=== PATIENT | female | born 2005 | race Asian ===

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

== ENCOUNTER 2024-12-25 17:35 | Outpatient (CLI) | payer OTHER, SELFPAY | END 2024-12-25 17:36 | disposition home or self-care (01) | LOC: AMB 12-29 06:34 | PROVIDERS: PCP Family Medicine; Visit Provider Family Medicine | DX: S99.911A Unspecified injury of right ankle, initial encounter (principal); W10.9XXA Fall (on) (from) unspecified stairs and steps, initial encounter; Y92.039 Unspecified place in apartment as the place of occurrence of the external cause | CPT/HCPCS: A0425; A0427 ==

== ENCOUNTER 2024-12-25 18:01 | Emergency (ER) | payer OTHER, SELFPAY ==
--- OUTSIDE RECORDS SUMMARY | 2024-12-25 18:03 | XMS_ITS | Referral Summary ---
Author Organization [facility] r Address [address] [place] [address] Phone Care Team Providers Care Socially Responsible Investment Adviser Name Role Phone Horacio Santo MD Primary Care Provider Unav ailable Allergies No known active allergies Medications sertraline (ZOLOFT) 50 mg tablet Take 50 mg by mouth daily. Active norethindrone-et hinyl estradiol (04/19) 1 mg-20 mcg (21)/75 mg (7) per tablet Take 1 tablet by mouth daily. 11/28/2022 Active Social History Tobacco Use Types Packs/Day Years Used Date Smoking Tobacco: Never Tobacco Cessation:Counseling Given: Not Answered Comments Unknown Sex and Gender Information Value Date Recorded Sex Assigned at Female 10/30/2022 2:16 PM EDT Legal Sex Female 2:12 PM EDT Gender Identity Female 10/30/2022 2:16 PM EDT Sexual Orientation Not on file Last Filed Vital Signs Vital Sign Reading Time Taken Comments Blood Pressure 109/67 10/24/2023 11:03 AM EDT Pulse 69 10/24/2023 11:03 AM EDT Temperature - - Respiratory Rate - - Oxygen Saturation - - Inhaled Oxygen Concentration - - Weight - - Height - - Body Mass Index - - Plan of Treatment Not on file Care Teams Socially Responsible Investment Adviser Relationship Specialty Start Date End Date Horacio Santo MD PCP - General 03/07/23
--- OUTSIDE RECORDS SUMMARY | 2024-12-25 18:03 | XMS_ITS | Clinical Summary ---
Author Organization [facility] Address [address] [place] [address] Phone Care Team Providers Care Raw Cheese Worker Name Role Phone Horacio Santo MD Primary [...] Mass Index - - Plan of Treatment Health Maintenance Due Date Last Done Comments Dental Oral Exam 2004 Dental Prophylaxis 2004 Dental X-Ray: Bitewings 2004 Dental X-Ray: Full Mouth 2004 HIV Lifetime Screening 2004 Hepatitis B Lifetime Screening 2004 Hepatitis C Antibody Lifetime Screening 2004 Periodontal Maintenance 2004 THRIVE SCREENING 2004 Oral Health Screen 2004 Fluoride Varnish 2004 MMR VACCINES (1 of 1 - Standard series) 02/27/2005 HEIP Disability Screen 02/27/2009 BEHAVIORAL HEALTH SCREEN 2016 Psych Substance Use Screen 2016 VARICELLA VACCINES (1 of 2 - 13+ 2-dose series) 02/27/2017 CHLAMYDIA SCREENING 02/27/2019 HPV VACCINES (1 - 3-dose series) 02/27/2019 Relationship Safety Screening 02/27/2019 MENINGOCOCCAL B (1 of 2 - Standard) 2020 DTAP/TDAP VACCINE (1 - Tdap) 02/27/2023 HEPATITIS B VACCINES (1 of 3 - 19+ 3-dose series) 02/27/2023 COVID-19 Vaccine (4 - 2024- season) 2024 04/12/2021, 07/23/2020, 07/02/2020 INFLUENZA VACCINE (#1) 2024 0, 02/13/2011, 01/30/2010, Additional history exists Zoster Vaccine (1 of 2) 02/27/2054 HEPATITIS A VACCINES Aged Out No long er eligible based on patient's age to complete this topic HIB VACCINES Aged Out No longer eligi ble based on patient's age to complete this topic IPV VACCINES Aged Out No longer eligi ble based on patient's age to complete this topic MENINGOCOCCAL ACWY Aged Out No longer eligible based on patient's age to complete this topic Pneumonia Vaccine 0-49 Years Aged Out No longer eligible based on patient's age to complete this topic ROTAVIRUS VACCINES Aged Out No longer eligible based on patient's age to complete this topic Care Teams Raw Cheese Worker Relationship Specialty Start Date End Date Horacio Santo MD PCP - General 03/07/23
--- OUTSIDE RECORDS SUMMARY | 2024-12-25 18:03 | XMS_ITS | Encounter Summary ---
Author Organization [facility] Address [address] [place] [address] [address] Care Team Providers Care Dietician Name Role Phone Horacio Santo Md Primary Care Provider Horacio Smith Md Unavailable Unavailable Katharine Figueroa Np Primary Care Provider [phone] Encounter Details Date Type Department Care Team (Late st Contact Info) Description 09/07/2019 [place] [phone] Latia Carranza MA Social History Tobacco Use Types Packs/Day Years Used Date Smoking Tobacco: Never Smokeless Tobacco: Never Comments Unknown Sex and Gender Information Value Date Recorded Sex Assigned at Female 09/23/2022 1:59 PM EDT Legal Sex Female 9:19 PM EDT Gender Identity Not on file Sexual Orientation Not on file COVID-19 Exposure Response Date Recorded In the last month, have you been in contact with someone who was confirmed or suspected to have Coronavirus / COVID-19? No / Unsure 09/01/2019 4:46 PM EDT documented as of this encounter Plan of Treatment Not on file documented as of this encounter Visit Diagnoses Not on filedocumented in this encounter Care Teams Dietician Relationship Specialty Start Date End Date Horacio Santo MD PCP - General Pediatrics 08/25/14 09/22/22 Horacio Santo MD PCP - Payer 11/15/15 Katharine Figueroa NP [address] [place], [place] [address] [address] PCP - General Pediatrics 09/23/22 documented as of this encounter
--- OUTSIDE RECORDS SUMMARY | 2024-12-25 18:03 | XMS_ITS | Encounter Summary ---
Author Organization [facility] r Address [address] [place] [address] Phone Care Team Providers Care Sales Representative Graphic Art Name Role Phone Horacio Santo MD Primary Care Provider Unav ailable Encounter Details Date Type Department Care Team (Late st Contact Info) Description 04/08/2024 Telephone Oral Surgery [address] [phone] Rashi Keyes, DMD [address] [place] [id number] Social History Tobacco Use Types Packs/Day Years Used Date Smoking Tobacco: Never Comments Unknown Sex and Gender Information Value Date Recorded Sex Assigned at Female 10/30/2022 2:16 PM EDT Legal Sex Female 2:12 PM EDT Gender Identity Female 10/30/2022 2:16 PM EDT Sexual Orientation Not on file documented as of this encounter Miscellaneous Notes * Telephone Encounter - Shabana Jefferson - 04/08/2024 9:21 AM EST S/W the pt's mom who stated they no longer want to proceed with the Lisa surgery as of now. documented in this encounter Plan of Treatment Not on file documented as of this encounter Visit Diagnoses Not on filedocumented in this encounter Care Teams Sales Representative Graphic Art Relationship Specialty Start Date End Date Horacio Santo MD PCP - General 12/8/23 documented as of this encounter
--- OUTSIDE RECORDS SUMMARY | 2024-12-25 18:03 | XMS_ITS | Clinical Summary ---
Author Organization [facility] Address [address] [place] [address] [address] Care Team Providers Care Farm Equipment Service Technician Name Role Phone Horacio Santo Md Unavailable Unavailable Katharine Figueroa Np Primary Care Provider [phone] Allergies No known active allergies Medications norethindrone-e thinyl estradiol (04/19) 1 mg-20 mcg (21)/75 mg (7) tabletIndicatio ns:Dysmenorrhea Take 1 tablet by mouth daily 84 tablet 4 5 Active norethindrone-e thinyl estradiol (04/19) 1 mg-20 mcg (21)/75 mg (7) tabletIndicatio ns:Dysmenorrhea Take 1 tablet by mouth daily 84 tablet 4 4 12/09/19 25 Discontinued Active Problems Problem Noted Date Diagnosed Date Vegetarian diet 06/21/2024 History of anxiety 06/17/2023 Overview (06/17/2023): Stable on 50 mg sertraline Followed by outside psychiatry through [facility] and trying to establish therapy as of May 2023 (had previously been in therapy and trying to get back in with old therapist). Overall, however, she is feeling much better than she has in the past Refractive error 04/24/2022 Resolved Problems Problem Noted Date Diagnosed Date Resolved Date Screening for mental disease /developmental disorder 09/16/2012 11/17/2014 Overview (10/13/2013): 09/10: PSC score: 9 10/11: PSC score: 23 - suggested considering BH Attention and concentration deficit 05/22/2011 11/17/2014 Overview (10/13/2013): 05/12 pt is very smart. She is supplemented with extra classes. Her [employer] math class teacher told mom she is very inattentive. Does not pay attention and then does not know the answers. When mom works with her at home, she gets all the problems right. Mom not sure what the reg high school french teacher thinks, but she knows she gets bored in schol. Also talks a lot. And unclear what her social skills are as she would rather read a book than many other play activities. However, does have friends. 09/10: mom finds can get irritable at home - ?teenager behavior - can be forgetful - but otherwise very bright 10/11: doing extra math class - teacher said needs to be called upon to get her attention - but otherwise still doing well Vomiting 05/22/2011 11/17/2014 Overview (09/16/2012): 05/12 mom associates this with forcing her to eat, but will have her keep 3 week food and sx diary. Her weight is not as good as before- decreased BMI Chest pain/?heartburn 05/22/20112013 Overview (10/13/2013): 05/12 going to school nurse with heartburn type sx. No treatment. ?if connected to the vomiting. 09/10: no calls from school nurse this year 10/11: no longer an issue - will resolve Motion sickness 05/22/2011 11/17/2014 Overview (10/13/2013): 05/12 just started. Explained to mom and gave avs handout. Sit looking straight ahead. No migraines in pt or fam. 09/10: noted that happens when reads in car - fine when not reading 10/11: better when doesn't read in car, still an issue on airplane Poor eating habits 05/22/2011 5 Overview (10/13/2013): 05/12 does not drink much. No water. 2 glasses of milk. No breakfast at times. No lunch at school. Small dinner takes 2 hours. Poor eating habit at dinner-was allowed to read so took her time. Mom has forced foods into her. Pt will respond by vomiting and mom thinks may be forced vomiting so she can get away from the talble to read or play. She needs to see nutrition to work out something for her foods. Should not have secondary gain. Try making urine more dilute by showing her paint chips and telling her the urine needs to be edi coordinator yellow like a certain paint color. 09/10: still doesn't drink much, no water, whole milk bid, mom still feels needs to feed her - otherwise takes too long and has other things to do - given info for nutrition again 10/11: still doesn't eat lunch - mom says is too social, will make eat lunch at 3PM but then may either get irritable and need to get her something to eat or not want to eat dinner - mom says she has to entertain and feed her, otherwise can take 2 hrs. To eat - advised still seems like behavioral problem - strongly enc. Not to cont. Same pattern - enc. To consider BH Vitamin D deficiency 11/08/2009 015 Overview (05/22/2011): 11/07 09/06 level 27. On mvt with vit d linwood past 1.5 years Asthma, cough variant 09/08/20062009 Overview (11/08/2009): Call to home to discuss Asthma, do not speak Samoan unable to talk with them. Sglennie 11/07 she wheezed after she had bronchiolitis. Not since Anemia, iron deficiency 04/23/200610/30 Overview (11/08/2009): 08/29. Neg hgb elec and ferritin 14 with hgb 11.9 Immunizations Immunization Administration Dates Next Due COVID-19 (PFIZER) Vaccine, 1 2YRS+, 30mcg/0.3mL 03/08/2024 COVID-19 (PFIZER) Vaccine, 30mcg/0.3mL, 12YRS+, Diluent Reconstituted, IM 04/12/2021,07/23/2020,07/02/2020 DTaP Vaccine 08/29/2008, 6,2004,04/30 DTaP-Hep B-IPV (Pediarix) 2004 HFlu B Conj (Unspecified Formulation) ,2004,2004,04/30 HPV9 Vaccine (Gardasil9) 08/28/2018,12/04/2016 Hep A Vaccine Pedi/Adol-2 Dose Sched 08/30/2005, 03/07/2005 Hep B Vaccine (Unspecified Formulation) 2004,2004 Influenza H1N1 Vaccine Intra nasal - [facility] 02/19/2009 Influenza Vaccine (Unspecifi ed Formulation) 02/09/2009,02/02/2008,02/12/2007,04/23,02/04/2005,01/03/2005 Influenza Vaccine >= 36 Mos - Imm Clinic 02/13/2011 Influenza Vaccine Intranasal - Imm Clinic 01/30/2010 Influenza Vaccine, 6MOS+, Ce ll Cult, Single Dose Syringe, 0.5 mL (FLUCELVAX) 12/08/2023 Influenza Vaccine, 6MOS+, Si ngle Dose, 0.5 mL (Flulaval/Fluzone) 12/31/2019 MMR Vaccine 02/02/2008,03/07/2005 Meningococcal ACWY (Menactra ) Conjugate Vaccine 04/13/2021,11/20/2015 Meningococcal Group B (Bexse ro) Conjugate Vaccine 06/17/2023,05/16/2022 Pneumococ/Pedi-Conjugate (PCV7) 05/30/19 06,2004,2004,04/30 Polio Vaccine (Inactivated) 08/29/2008, 5,2004 TB Test 05/29/2005 TdaP 11/20/2015 Typhoid Vaccine IM (ViCPS) 09/10/2017,02/02/2008 Varicella Vaccine 08/29/2008,03/07/2005 Family History Medical History Relation Comments Hyperlipidemia Paternal Grandfather Hypertension Paternal Grandmother Relation Status Comments Father Alive 30 Mother Alive 30 in 2003 Paternal Grandfather Paternal Grandmother Social History Tobacco Use Types Packs/Day Years Used Date Smoking Tobacco: Never Smokeless Tobacco: Never Hunger Vital Sign Answer Date Recorded Within the past 12 months, y ou worried that your food would run out before you got the money to buy more. Never true 06/22/19 25 Within the past 12 months, t he food you bought just didn't last and you didn't have money to get more. Never true 06/21/2024 PRAPARE - Transportation Answer Date Re corded In the past 12 months, has l ack of transportation kept you from medical appointments or from getting medications? No 05/30 In the past 12 months, has l ack of transportation kept you from meetings, work, or from getting things needed for daily living? No 06/21/2024 Depression Answer Date Recorded Last PHQ-2 0 06/21/2024 Last PHQ-9 0 06/21/2024 Suicidal Ideation/Self Harm Risk 0 - not at all 06/21/2024 Housing Stability Answer Date Recorded What is your housing situation today? Has doreen pickard 06/21/2024 Are you worried about losing your housing? No 06/21/[address] you li ve. Do you have problem with any of the following? (Choose all that apply) None of the Above Request Assistance Answer Date Recorded Would you like to discuss an y of the needs you identified in this survey with a member of your care team? Not applicable 06/21/2024 Urgent Assistance Needed Not on file 025 Social Isolation Answer Date Recorded How often do you feel lonely or isolated from th ose around you? Rarely 06/21/2024 Family Needs Answer Date Recorded In the past year, have you o r any family members that you live with been unable to get resources (utilities such as power, water, or phone service; clothing; childcare; medicine or other healthcare; employment; etc) when they were really needed? No needs 06/21/2024 Other Needs Not on file 06/21/2024 Safety Answer Date Recorded Do you feel physically and e motionally safe where you currently live? Yes 06/21/2024 Self-Management Confidence Answer Date Recorded How confident are you that y ou can control and manage most of your health problems? Please provide numerical response between 0 -10. 0 = Not at all confident, 10= Completely confident. 8 06/21/2024 Comments Unknown Sex and Gender Information Value Date Recorded Sex Assigned at Female 09/23/2022 1:59 PM EDT Legal Sex Female 9:19 PM EDT Gender Identity Not on file Sexual Orientation Not on file History Length Weight Head Circum Date/Time Gestation Age D/C Weight APGARs Delivery Method Feeding 20 (50.8 cm) 7 lb 10 oz (3.459 kg) 13.19 (33.5 cm) 2004 38.6 wks 7 lb 2 oz 1min: 8 5mi n: 9 Breast Fed VAG DELIVERY Obstetrics History Last Filed Vital Signs Vital Sign Reading Time Taken Comments Blood Pressure 108/60 06/21/2024 1:03 PM EDT Pulse 80 06/21/2024 1:03 PM EDT Temperature 36.3 C (97.3 F) 08/29/2021 1:56 PM EDT Respiratory Rate - - Oxygen Saturation - - Inhaled Oxygen Concentration - - Weight 71.2 kg (157 lb) 06/21/2024 1:03 PM EDT Height 161.9 cm (5' 3.74) 06/21/2024 1:03 PM ED T Body Mass Index 27.17 06/21/2024 1:03 PM EDT Plan of Treatment Health Maintenance Due Date Last Done Comments HEPATITIS A VACCINE (2 of 2 - 2-dose series) 03/01/2006 08/30/2005, 03/07/2005 * GLUCOSE OR A1C SCREENING - Q3YR 02/27/2022 HEP B INITIAL SCREENING 02/27/2022 HEP C SCREENING 02/27/2022 HIV SCREENING 02/27/2022 LIPID SCREENING 2024 FLU SEASONAL (#1) 11/29/2024 12/08/2023, 12/31/2019, 02/13/2011, Additional history exists CHLAMYDIA SCREENING FEMALE 16-24 06/21/2025 06/21/2024, 06/17/2023, 05/16/2022, Additional history exists PERIODIC HEALTH REVIEW 06/21/2025 06/21/2024 DTAP/TDAP/TD VACCINE (7 - Td or Tdap) 11/19/2025 11/20/2015, 08/29/2008, 05/29/2005, Additional history exists HEPATITIS B VACCINE Completed 2004, 2004, 2004 HAEMOPHILUS INFLUENZA VACCINE Completed 05/29/2005, 2004, 2004, Additional history exists PNEUMOCOCCAL VACCINE(S) Aged Out 05/30/19, 2004, 2004, Additional history exists No longer eligible based on patient's age to complete this topic RUBELLA Completed 02/02/2008, 03/07/2005 POLIO VACCINE Completed 08/29/2008, 08/2004, 2004, Additional history exists HPV VACCINE Completed 08/28/2018, 12/04/2016 MENINGOCOCCAL VACCINE (ACWY) Completed 04/13/2021, 11/20/2015 MENINGOCOCCAL VACCINE (B) Completed 06/17/2023, COVID-19 Vaccine Completed 03/08/2024, , 07/23/2020, Additional history exists RSV Vaccine Infant//toddler Aged Out No longer eligible based on patient's age to complete this topic Procedures Procedure Name Priority Date/Time Associated Diagnosis Comments CHLAMYDIA URINE DNA Routine 06/21/2024 4 :44 PM EDT Encounter for routine adult health examination without abnormal findings from Last 3 Months or Most Recently Relevant to Health Maintenance Results * CHLAMYDIA URINE DNA (06/21/2024 4:44 PM EDT) CHLAMYDIA PCR Negative Negative 06/22/2024 2:54 AM EDT [facility] DEPARTMENT OF PATHOLOGY AND LAB MEDICINE Comment: Test performed using Aptima Combo2 PCR assay. SOURCE URINE 06/22/2024 2:54 AM EDT [facility] DEPARTMENT OF PATHOLOGY AND LAB MEDICINE Urine (URINE) Urine / Unknown 06/21/2024 4:44 PM EDT 06/21/2024 4:45 PM EDT us Katharine Figueroa LAB URINE ORDERABLES Vida sanchez Result [facility] OF [facility]OLOGY AND LAB MEDICINE [address] [phone] from Last 3 Months or Most Recently Relevant to Health Maintenance Insurance [employer] Care Teams Farm Equipment Service Technician Relationship Specialty Start Date End Date Horacio Santo MD PCP - Payer 11/15/15 Katharine Figueroa NP [address] [place] [address] PCP - General Pediatrics 09/23/22
--- NOTE | 2024-12-25 18:15 | CRLHL7_ITS ---
For Patients: As a result of the Century Cures Act, medical imaging exams and procedure reports are released immediately into your electronic medical record. You may view this report before your referring provider. If you have questions, please contact your health care provider. Indication: Trauma. Technique: Three views of the right ankle. Comparison: None. Findings/Impression: Mildly displaced fracture of the distal fibular diaphysis with slight lateral displacement of the distal fracture fragment. Mildly displaced fracture of the posterior malleolus. There is slight subluxation anteriorly of the tibia relative to the talus on lateral projection. Soft tissue swelling evident. Dictated by Blaine Washburn MD @ 12/25/2024 7:22:26 PM (Electronically Signed)
[2024-12-25 18:16] VITALS: BP 119/88; PULSE 64; RESP 18; TEMP 36.6; O2SAT 95
--- NOTE | 2024-12-25 18:16 | ED.GENADULT ---
HPI - General Adult General Chief complaint: Extremity Pain/Injury, Lower Stated complaint: Leg fracture Time Seen by Provider: 12/25/24 18:04 History of Present Illness HPI narrative: This 19-year-old female comes in with injury to her right ankle. She tripped and twisted her ankle and states that it was flopping afterwards. She came in by ambulance and received IV fentanyl 50 mcg for pain relief. She does not report any other injury. She was wearing boots that come up above her ankle and continues to wear a boot on this right ankle that was injured. Related Data Home Medications ?Medication ?Instructions ?Recorded ?Confirmed norethindrone 1 mg-ethinyl 1 tab PO DAILY 12/25/24 12/25/24 estradiol 20 mcg (21)-iron 75 mg (7) tablet (June FE 04/19 (28)) sertraline 50 mg tablet 50 mg PO DAILY 12/25/24 12/25/24 Previous Rx's ?Medication ?Instructions ?Recorded potassium chloride 20 mEq 20 meq PO DAILY #30 tabs 07/05/23 tablet,extended release Allergies Allergy/AdvReac Type Severity Reaction Status Date / Time No Known Drug Allergies Allergy Verified 12/25/24 18:16 Review of Systems Status of ROS: Reports: 10 or more systems reviewed and unremarkable except as noted in History and below Narrative: Constitutional: No fevers, no weight gain or loss. Eyes: No discharge. No vision changes. HENT: No congestion, no sore throat, no ear pain. Cardiovascular: No chest pain, no palpitations. Respiratory: No shortness of breath, no wheezes, no cough. Gastrointestinal: No abdominal pain, no vomiting, no diarrhea. Genitourinary: No dysuria, no hematuria. Musculoskeletal: Right ankle injury as described above. Skin: No rashes, no pruritis. Neurological: No dizziness, weakness, sensory change, speech change. Endo/Heme/Allergies: No bruising or bleeding. No polydipsia. Pysch: no suicidality, no anxiety, no insomnia. All other systems reviewed and are negative. PFSH PFSH Social History Smoking Status: Unknown if ever smoked Exam Narrative: Exam Narrative: Constitutional: Well-developed, well-nourished, no acute distress. HEENT: Normocephalic, atraumatic. Neck: Normal range of motion. Nontender. Supple. Heart: Intact distal pulses. Lungs: No chest discomfort. No wheezes, rhonchi, or rales. Abdomen: Nontender. Back: Normal range of motion. Extremities: Patient arrived in a splint applied by EMS. This was removed along with her boot. She has tenderness over the medial and lateral malleoli of the right ankle. She has mild swelling but no obvious deformity. Skin: Intact. No rash. Warm. No erythema or pallor. Neurologic: No altered sensation. No weakness. Alert and oriented. Psychiatric: No suicidality. No anxiety or depression. No insomnia. Nursing notes and vitals signs are reviewed. Const: Vital Signs, click to edit/add: Vital Signs - 24 hr 12/25/24 18:16 Temperature 97.8 F Pulse Rate [Pulse Oximeter] 64 Respiratory Rate 18 Blood Pressure [Le ft Upper Arm] 119/88 Pulse Oximetry 95 Oxygen Delivery Me thod Room Air Course Vital Signs Vital signs: Initial Vital Signs Temperature 97.8 F 12/25/24 18:16 Temperature Source Temporal Artery Scan 12/25/24 18:16 Pulse Rate 64 12/25/24 18:16 Respiratory Rate 18 12/25/24 18:16 Blood Pressure 119/88 12/25/24 18:16 Blood Pressure Mean 98 12/25/24 18:16 Blood Pressure Position Semi-Fowlers 12/25/24 18:16 Pulse Oximetry 95 12/25/24 18:16 Oxygen Delivery Method Room Air 12/25/24 18:16 Vital Signs Temperature 97.8 F 12/25/24 18:16 Pulse Rate 64 12/25/24 18:16 Respiratory Rate 18 12/25/24 18:16 Blood Pressure 119/88 12/25/24 18:16 Pulse Oximetry 95 12/25/24 18:16 Oxygen Delivery Method Room Air 12/25/24 18:16 Temperature 97.8 F 12/25/24 18:16 Pulse Rate 64 12/25/24 18:16 Respiratory Rate 18 12/25/24 18:16 Blood Pressure 119/88 12/25/24 18:16 Pulse Oximetry 95 12/25/24 18:16 Oxygen Delivery Method Room Air 12/25/24 18:16 Medical Decision Making MDM Narrative Medical decision making narrative: This patient comes in with an injury to her right ankle. She was brought in by ambulance who placed a splint over her boot and lower leg. This was removed and I was able to remove her boot without damaging it. She tolerated this rather well. X-ray images show a fracture and some instability of the ankle joint. Her distal tibia is translated a bit laterally and anteriorly. I did place a Randy Stephens style splint using Ortho Glass material and applied a bit of pressure to correct the joint position. Repeat x-rays are obtained and show an improvement in this regard. I did contact the Ortho physician's assistant drafter dispute resolution specialist who also looked after these images. I informed the patient that this is an unstable injury and will need surgery. She was fitted for crutches and received Inst[employer] prescription for Anderson. She is instructed the call the orthopedic clinic for arrangements next week for surgical repair. Imaging Data XR R Ankle: Radiologist's impression: Mildly displaced fracture of the distal fibular diaphysis with slight lateral displacement of the distal fracture fragment. Mildly displaced fracture of the posterior malleolus. There is slight subluxation anteriorly of the tibia relative to the talus on lateral projection. Soft tissue swelling evident. Discharge Plan Discharge Clinical Impression: Ankle fracture Patient Disposition: Home, Self-Care Condition: Improved Additional Instructions: Keep splint in place and use crutches for ambulating. No weight-bearing on the injured leg. Use pain medicine as needed and directed for pain relief. Follow-up with orthopedic clinic for further management of this injury. Call [phone] for appointment. Prescriptions: No Action potassium chloride 20 mEq tablet extended release 20 meq PO DAILY Qty: 30 0RF norethindrone-e.estradiol-iron [04/19 (28)] 1 mg-20 mcg (21)/75 mg (7) tablet 1 tab PO DAILY sertraline 50 mg tablet 50 mg PO DAILY Follow Up/Referrals: Provider,Not a Local [Primary Care Provider, Family Practice] Stand Alone Forms: [employer] Info Instructions
--- NOTE | 2024-12-25 20:09 | CRLHL7_ITS ---
For Patients: As a result of the Century Cures Act, medical imaging exams and procedure reports are released immediately into your electronic medical record. You may view this report before your referring provider. If you have questions, please contact your health care provider. Indication: Trauma status post splinting. Technique: Three views of the right ankle. Comparison: Right ankle radiographs 12/25/2024. Findings/Impression: Improved AP alignment of the tibiotalar joint with mild persistent medialization of the tibia relative to the talus and mild syndesmotic widening. Unchanged mildly displaced fracture of the distal fibula and displaced fracture at the posterior malleolus. Soft tissue swelling. Dictated by Blaine Washburn MD @ 12/25/2024 8:57:20 PM (Electronically Signed)
== END 2024-12-25 21:34 | disposition home or self-care (01) ==
PROVIDERS: Emergency Provider Emergency Medicine Emergency Medical Services
DX: S82.51XA Displaced fracture of medial malleolus of right tibia, initial encounter for closed fracture (principal); S82.831A Other fracture of upper and lower end of right fibula, initial encounter for closed fracture; X50.1XXA Overexertion from prolonged static or awkward postures, initial encounter
CPT/HCPCS: 29515; 73610; 99283; 99284

== ENCOUNTER 2024-12-28 10:40 | Outpatient (CLI) | payer OTHER, SELFPAY | END 2024-12-28 10:41 | disposition home or self-care (01) | PROVIDERS: PCP Family Medicine; Visit Provider Family Medicine | DX: Z01.818 Encounter for other preprocedural examination (principal) | CPT/HCPCS: 80048; 85025 ==

== ENCOUNTER 2024-12-30 08:28 | Day surgery (SDC) | payer OTHER, SELFPAY ==
[2024-12-30] VITALS (14 sets, daily range): BP systolic 106–135; BP diastolic 63–78; PULSE 66–103; RESP 16–20; TEMP 36.3–36.8; O2SAT 94–99; BMI 26.7
[2024-12-30] MEDS: LACTATED RINGERS 1000 ML 1,000 ML 100 ML IV (08:35)
[2024-12-30] MEDS: ACETAMINOPHEN 500 MG TABLET 1000 MG PO (09:00)
[2024-12-30] MEDS: CELECOXIB 200 MG CAPSULE PO (09:00)
[2024-12-30] MEDS: OXYCODONE (CR) 10 MG TAB.ER.12H PO (09:00)
[2024-12-30] MEDS: SODIUM CHLORIDE 0.9 % (FLUSH) 10 ML SYRINGE IVF (09:22)
[2024-12-30] MEDS: MIDAZOLAM HCL 1 MG/ML inj IVP (10:10)
--- NOTE | 2024-12-30 10:25 | SUR.PREOP ---
TIME?OUT:?1010 PT/vaishnavi sofia RN/lorri keys MDA?VERIFICATION?OF?SURGICAL?SITE,?PROCEDURE,?AND?CONSENT OBTAINED?PRIOR?TO?INVASIVE?PROCEDURE.
--- NOTE | 2024-12-30 10:35 | W.PM.NB ---
Nerve Block Nerve Block Time Seen by Provider: 10:15 Date Seen: 12/30/24 Type of block requested by surgeon for post-operative analgesia: popliteal Side: right Time out performed: Yes Verification of patient name: Yes Verification of date of : Yes Site marking: site marked Name of person performing procedure: Huan Continuous monitoring Was continuous monitoring of O2 sat, B/P, costume director, recorded every 15 minutes?: Yes Procedure Checklist: sterile prep, needles and gloves Ultrasound guided. Images saved: Yes Medications given in 5ml increments after negative aspiration: Marcaine %: 0.25 mL: 10 Needle gauge: 22 and Exparel mL: 10 Patient tolerated procedure well: Yes Additional comments: Needle noted adjacent to nerve Block Charges Block Charge (with Pro Fee): Sciatic Nerve Use of Ultrasound Machine for Block: Yes- US Guidance/pain block
--- NOTE | 2024-12-30 10:36 | P.ANES_ITS ---
Anesthesia Charges Start Date/Time Anesthesia Start Date: 12/30/24 Anesthesia Start Time: 11:09 Stop Date/Time Anesthesia Stop Date: 12/30/24 Anesthesia Stop Time: 13:44 Coding CPT Codes CPT Codes: ANESTH LOWER LEG BONE SURG - 10441 ([id number]) P1 - NORMAL HEALTHY PATIENT, QK - MANAGER ACUTE 2-4 CNCRNT ANES PROC, QX - MULTIMEDIA PRODUCTION ASSISTANT SVMora W/ MED DIRECTION
--- NOTE | 2024-12-30 10:36 | W.ANESCHARGE ---
Anesthesia Charges Start Date/Time Anesthesia Start Date: 12/30/24 Anesthesia Start Time: 11:09 Stop Date/Time Anesthesia Stop Date: 12/30/24 Anesthesia Stop Time: 13:44 Coding CPT Codes CPT Codes: ANESTH LOWER LEG BONE SURG - 70378 ([id number]) P1 - NORMAL HEALTHY PATIENT, QK - MASS COMMUNICATIONS PROFESSOR 2-4 CNCRNT ANES PROC, QX - CLINICAL CARE COORDINATOR SVMora W/ MED DIRECTION
--- NOTE | 2024-12-30 13:33 | PM.ORPRC ---
Procedure Note Date of procedure: 12/30/24 Procedure: PREOPERATIVE DIAGNOSIS: Right ankle Wu C fracture, posterior malleolus fracture POSTOPERATIVE DIAGNOSIS: Right ankle Wu C fracture, posterior malleolus fracture NAME OF OPERATION: ORIF SURGEON: Ryland Marte MD INJECTION MOLDING MACHINE OFFBEARER: Omayra Ramos PA-C ANESTHESIA: General plus popliteal block ESTIMATED BLOOD LOSS: 25 mL COMPLICATIONS: None SPECIMENS: None DRAINS: None PREOPERATIVE ANTIBIOTICS: Ancef 1 gram INDICATIONS: The patient is a 19-year-old who sustained a right ankle fracture. ORIF was recommended. The risks, benefits and expected outcomes were discussed in detail. These included but were not limited to: Infection, bleeding, injury to blood vessel or nerve, venous thromboembolism. All questions were answered to their satisfaction. Use of an bindery library technical assistant was necessary throughout the case for patient positioning and safety, soft tissue retraction and closure. Provider Operated C-arm: C-arm fluoroscopy operated by Ryland Marte MD for assessing the reduction and implant placement. 352 C-arm spot images were obtained. Fluoroscopy time was 6 minutes and 33 seconds. PROCEDURE: A popliteal block was placed by anesthesia. General anesthesia was administered. The lower extremity was prepped and draped in the usual sterile fashion. The guide pin was placed in the center of the distal fragment of the fibula, percutaneously. Its placement was confirmed with the image intensifier in multiple views. A stab incision was made around the guide pin. The opening reamer was used to the fracture site. The fracture reduction femur was placed in the canal. The flexible guide pin was placed through it and was advanced into the proximal fragment, while holding the fracture reduced. The 3.2 mm Reamer was Used in the proximal fragment. We placed the Arthrex 3.0 mm x 180 mm intramedullary nail. It would not fully advance into the canal, despite reaming far enough proximally. It was carefully tapped and still would not advance. Therefore we elected to remove the nail. In doing so, it was noted on the image intensifier that the very tip of the nail had come loose and was stuck in the canal proximally. A Steinmann pin was placed in the canal and was carefully tapped. We were unable to advance the end of the nail. Additionally, we did not have another long nail available. Therefore, we elected to go with a short nail. The 3 mm x 130 mm nail was placed. This ended far enough proximal to the fracture site. A percutaneous incision was placed over the anterior and posterior aspect of the distal fragment. A pointed reduction clamp was placed and the distal fibular fragment was advanced distally, to regain length. The talons were deployed. We placed 2 screws in the distal fragment. The syndesmotic reduction clamp was placed through 1 of our incisions laterally and a separate percutaneous incision over the tibia medially. The syndesmosis was reduced. We then placed 2 x 3.5 mm syndesmotic quadra cortical screws. This provides anatomic fixation of the syndesmosis and medial mortise. The fibula appears out to length. The parcel post delivery was removed, the end cap was placed. Implants were imaged in the AP, mortise and lateral views and were felt to be well placed with an excellent reduction. The talus is nicely reduced under the tibial plafond. The small posterior malleolus fracture fragment is well aligned. The talus is not subluxed posteriorly. The wounds were irrigated with normal saline. The bindery library technical assistant closed the skin with a 3-0 nylon in an interrupted fashion. The bindery library technical assistant placed a dry dressing and short leg Randy Stephens splint. Sponge and needle counts were correct x 2. The patient tolerated the procedure well. There were no apparent complications. They were carefully transferred to the hospital bed and taken to the postanesthesia care unit in satisfactory condition. PLAN: The patient will be discharged to home. They will remain strict nonweightbearing on the lower extremity. They will continue to work on ice and elevation. They will follow up in the office in 2 weeks for a wound check and three views of the ankle out of the splint, prior to being seen, in preparation for a short-leg, nonweightbearing waterproof cast. We will plan 6 weeks nonweightbearing in a cast, 6 weeks weight-bearing as tolerates in a cam walker. We will plan to take her back to the operating room in 12 weeks for syndesmotic screw removal. I did discuss with her mom that the tip of the 1st nail was retained in the fibula. I told her that this will not cause any long-term issues.
[2024-12-30] MEDS: MEPERIDINE 25 MG/ML INJ 12.5 MG IVP (14:01)
--- NOTE | 2024-12-30 16:30 | P.ANES_ITS ---
Anesthesia Charges Start Date/Time Anesthesia Start Date: 12/30/24 Anesthesia Start Time: 11:09 Stop Date/Time Anesthesia Stop Date: 12/30/24 Anesthesia Stop Time: 13:44 Coding CPT Codes CPT Codes: ANESTH LOWER LEG BONE SURG - 54855 ([id number]) P1 - NORMAL HEALTHY PATIENT, QK - EVALUATION ASSISTANT 2-4 CNCRNT ANES PROC, QX - HAIRSPRING FABRICATION SUPERVISOR SVMora W/ MED DIRECTION
--- NOTE | 2024-12-30 16:30 | W.ANESCHARGE ---
Anesthesia Charges Start Date/Time Anesthesia Start Date: 12/30/24 Anesthesia Start Time: 11:09 Stop Date/Time Anesthesia Stop Date: 12/30/24 Anesthesia Stop Time: 13:44 Coding CPT Codes CPT Codes: ANESTH LOWER LEG BONE SURG - 02785 ([id number]) P1 - NORMAL HEALTHY PATIENT, QK - BOILER TENDERS SUPERVISOR 2-4 CNCRNT ANES PROC, QX - MANAGER TRANSPORTATION SVMora W/ MED DIRECTION
== END 2024-12-30 15:23 | disposition home or self-care (01) ==
LOC: OR 08:29
PROVIDERS: PCP Family Medicine; Visit Provider Orthopaedic Surgery
PROC: (CPT 27769; principal; 2024-12-30 10:30)
DX: S82.891A Other fracture of right lower leg, initial encounter for closed fracture (principal); S93.431A Sprain of tibiofibular ligament of right ankle, initial encounter; G89.18 Other acute postprocedural pain
CPT/HCPCS: 27769; 27829; 01480; 64445; 73600; 76000; 76942; 81025; A9270; C1713; J0665; J0666; J0690; J1100; J1630; J2175; J2250; J2371; J2405; J2704; J3010; J3490; J7120